=== PATIENT | male | born 1965 | race Caucasian/White ===

== ENCOUNTER 2019-05-21 00:16 | Emergency (ER) | payer MEDICAID, OTHER ==
[~2019-05-21] VITALS: Ht 182.9 cm; Wt 90.0 kg
[2019-05-21 01:40] VITALS: BP 144/97
== END 2019-05-21 01:42 | disposition home or self-care (01) ==
LOC: ER 00:16
DX: S00.83XA Contusion of other part of head, initial encounter (principal); S00.412A Abrasion of left ear, initial encounter; F15.10 Other stimulant abuse, uncomplicated; G89.29 Other chronic pain; R41.82 Altered mental status, unspecified; X58.XXXA Exposure to other specified factors, initial encounter; Y93.89 Activity, other specified; Y92.89 Other specified places as the place of occurrence of the external cause; Y99.8 Other external cause status
CPT/HCPCS: 99283